=== PATIENT | male | born 1980 | race African-American/Black ===

== ENCOUNTER 2021-08-27 16:46 | Emergency (ER) | payer MEDICARE, MEDICAID ==
[2021-08-27 18:12] LABS: #Eosinphils 0.2 10x3/uL (0.0-0.5); #Monocytes 0.7 10x3/uL (0.0-1.1); #Neutrophils 3.7 10x3/uL (1.5-8.4); %Basophils 0.5 % (0.0-2.0); %Eosinophils 3.2 % (0.0-6.0); %Lymphocytes 26.3 % (18.0-47.0); %Monocytes 11.5 % (0.0-10.0); Hemoglobin 13.6 g/dL (13.5-17.5); Mean Corpuscular HGB CONC 33.2 g/dL (32.0-36.0); Mean Corpuscular Hemoglobin 27.9 pg (27.0-33.0); Mean Corpuscular Volume 84.2 fl (81.2-95.1); Mean Platelet Volume 10.3 fl (7.4-10.4); Platelet Count 330 10x3/uL (150-450); RBC Distribution Width 13.3 % (11.5-14.5); Red Blood Cell (RBC) Count 4.87 10x6/uL (4.32-5.72); White Blood Cell (WBC) Count 6.3 10x3/uL (3.5-10.5)
[2021-08-27 18:16] LABS: ALT (SGPT) 31 U/L (8-55); AST (SGOT) 16 U/L (5-34); Albumin 4.2 g/dL (3.5-5.0); Alkaline Phosphatase 70 U/L (40-110); Anion Gap 10 mmol/L (10-20); BUN (Urea Nitrogen) 14 mg/dL (8.9-20.6); Bilirubin, Total 0.4 mg/dL (0.2-1.2); Calc. Creatinine Clearance 0 mL/min (70-130); Calcium 9.8 mg/dL (7.8-10.44); Carbon Dioxide 24 mmol/L (22-29); Chloride 106 mmol/L (98-107); Globulin 2.9 g/dL (2.4-3.5); Glucose 319 mg/dL (70-105); Potassium 4.1 mmol/L (3.5-5.1); Protein, Total 7.1 g/dL (6.0-8.3); Sodium 136 mmol/L (136-145)
[2021-08-27 18:28] LABS: Bilirubin Neg (Negative); Blood, Urine Negative (Negative); Clarity Clear (Clear); Glucose, Urine (Dipstick) >=1000 mg/dL (Negative); Ketone, Urine Negative (Negative); Leukocyte Negative (Negative); Nitrite Negative (Negative); Protein, Urine (Dipstick) Negative (Neg-Trace); Specific Gravity, Urine 1.005 (1.002-1.036); Urobilinogen Normal mg/dL (Less than 2)
== END 2021-08-27 20:14 | disposition home or self-care (01) ==
LOC: CSHERS 16:46
DX: E11.65 Type 2 diabetes mellitus with hyperglycemia (principal); F17.210 Nicotine dependence, cigarettes, uncomplicated
CPT/HCPCS: 71045; 80053; 81003; 84484; 85025; 87804; 93005

== ENCOUNTER 2022-06-07 08:46 | Emergency (ER) | payer MEDICARE, MEDICAID ==
[2022-06-07] MEDS ORDERED: Ibuprofen 200 MG TAB ONE (09:46)
[2022-06-07 10:12] LABS: Glucose 353 mg/dL (70-105)
== END 2022-06-07 10:45 | disposition home or self-care (01) ==
LOC: CSHERS 08:46
DX: E11.65 Type 2 diabetes mellitus with hyperglycemia (principal); L03.111 Cellulitis of right axilla; M54.50 Low back pain, unspecified; R51.9 Headache, unspecified; E11.9 Type 2 diabetes mellitus without complications; F17.210 Nicotine dependence, cigarettes, uncomplicated
CPT/HCPCS: 36415; 82947; 99284